=== PATIENT | male | born 1955 | race Hispanic/Latino ===

== ENCOUNTER 2024-03-27 06:46 | Emergency (ER) | payer OTHER ==
[~2024-03-27] VITALS: Ht 172.7 cm; Wt 130.2 kg
[2024-03-27] MEDS: KETOROLAC 30MG VIAL (30MG/ML) IVP ONE (07:52)
[2024-03-27 08:44] LABS: APPEARANCE,URINE CLEAR (CLEAR); BILIRUBIN,URINE NEGATIVE (NEGATIVE); COLOR,URINE LIGHT-YELLOW (YELLOW); GLUCOSE, URINE (UA) NEGATIVE (NEGATIVE); KETONES,URINE NEGATIVE (NEGATIVE); LEUKOCYTE ESTERASE ,URINE NEGATIVE Leu/uL (NEGATIVE); NITRATE,URINE NEGATIVE (NEGATIVE); OCCULT BLOOD,URINE SMALL (NEGATIVE); PH,URINE 5.5 (5.0-8.0); PROTEIN,URINE NEGATIVE (NEGATIVE); UROBILINOGEN,URINE 0.2 mg/dL (0.2-1.0)
[2024-03-27 08:45] LABS: ADD UA MICROSCOPIC YES; MUCUS,URINE RARE LPF (None Seen); RBC,URINE 0-1 /HPF (0-1); WBC,URINE 0-1 /HPF (0-1)
[2024-03-27] MEDS: Solu-medROL 125MG VIAL IVP ONE (09:06)
[2024-03-27] MEDS: ORPHENADRINE 60MG/2ML IVP ONE (09:06)
[2024-03-27 10:09] VITALS: BP 105/67; PULSE 83; RESP 18; O2SAT 93
[2024-03-27] MEDS ORDERED: METH4TAB3 PO (10:12)
[2024-03-27] MEDS ORDERED: MELO10CA3 PO (10:12)
[2024-03-27] MEDS ORDERED: CYCL10TA16 PO (10:14)
== END 2024-03-27 10:44 | disposition home or self-care (01) ==
LOC: EDH 06:46
DX: M47.816 Spondylosis without myelopathy or radiculopathy, lumbar region (principal); E66.01 Morbid (severe) obesity due to excess calories; E78.00 Pure hypercholesterolemia, unspecified; I10 Essential (primary) hypertension; Z79.899 Other long term (current) drug therapy; Z90.49 Acquired absence of other specified parts of digestive tract
CPT/HCPCS: 99284; 96374; 96375; 81001; 72100; J2919; J1885; J2360